=== PATIENT | female | born 1980 | race Caucasian/White ===

== ENCOUNTER 2021-01-05 19:17 | Emergency (ER) | payer SELFPAY ==
[~2021-01-05] VITALS: Ht 167.6 cm; Wt 72.6 kg
[2021-01-05] MEDS ORDERED: Amoxicillin500 MG PO (20:34)
[2021-01-05] MEDS ORDERED: KETO10 PO (20:34)
== END 2021-01-05 20:49 | disposition home or self-care (01) ==
LOC: ER 19:17
DX: K02.9 Dental caries, unspecified (principal)
CPT/HCPCS: 99282; A9270

== ENCOUNTER 2021-04-17 09:26 | Emergency (ER) | payer OTHER ==
[~2021-04-17] VITALS: Ht 167.6 cm; Wt 72.6 kg
[~2021-04-17 09:26] MED LIST: Amoxicillin500 MG PO; KETO10 PO
[2021-04-17] MEDS ORDERED: Amoxicillin500 MG PO (10:47)
== END 2021-04-17 10:55 | disposition home or self-care (01) ==
LOC: ER 09:26
DX: K04.7 Periapical abscess without sinus (principal)
CPT/HCPCS: 99282